=== PATIENT | female | born 1975 | race Caucasian/White ===

== ENCOUNTER 2018-12-10 10:11 | Emergency (ER) | payer MEDICAID ==
[2018-12-10 11:50] LABS: ADD UMIC YES; UR ASCORBIC ACID NEGATIVE (NEGATIVE); UR BACTERIA FEW /HPF (NONE SEEN); UR BILIRUBIN (Dip) NEGATIVE (NEGATIVE); UR BLOOD (Dip) 1+ mg/dL (NEGATIVE); UR CLARITY CLEAR (CLEAR); UR COLOR YELLOW (YELLOW); UR GLUCOSE (Dip) NEGATIVE (NEGATIVE); UR KETONES (Dip) NEGATIVE (NEGATIVE); UR LEUKOCYTE ESTERASE (Dip) NEGATIVE Leu/ul (NEGATIVE); UR NITRITE (Dip) NEGATIVE (NEGATIVE); UR RBC 2 /HPF (0-5); UR SPECIFIC GRAVITY (Dip) 1.009 (1.003-1.030); UR SQUAMOUS EPITHELIAL CELL FEW /HPF (FEW); UR TOTAL PROTEIN (Dip) NEGATIVE (NEGATIVE); UR UROBILINOGEN (Dip) NEGATIVE (NEGATIVE); UR WBC 0 /HPF (0-5)
[2018-12-10] MEDS: FLUCONAZOLE 150 MG TAB PO (12:32)
== END 2018-12-10 12:36 | disposition home or self-care (01) ==
LOC: FTE 10:11
DX: R30.0 Dysuria (principal)
CPT/HCPCS: 81001; 99283

== ENCOUNTER 2018-12-13 08:01 | Emergency (ER) | payer MEDICAID ==
[2018-12-13 09:08] LABS: URINE BLOOD (Dip) POC Trace-lysed (NEGATIVE); URINE GLUCOSE (Dip) POC Negative (NEGATIVE); URINE KETONES (Dip) POC Negative (NEGATIVE); URINE LEUKOCYTE EST (Dip) POC Negative (NEGATIVE); URINE NITRITE (Dip) POC Negative (NEGATIVE); URINE TOTAL PROTEIN POC Negative (NEGATIVE)
[2018-12-13] MEDS: FLUCONAZOLE 150 MG TAB PO (09:12)
== END 2018-12-13 09:17 | disposition home or self-care (01) ==
LOC: FTE 08:01
DX: B37.9 Candidiasis, unspecified (principal)
CPT/HCPCS: 81003; 99284